=== PATIENT | female | born 1960 | race Caucasian/White ===

== ENCOUNTER → 2020-08-15 | Outpatient (CLI) | payer OTHER ==
[~2020-08-15] MED LIST: ARIMIDEX PO; BONIVA150 MG PO; CALCIUM 500 +1 EAC5 PO; CENTRUM SILVER1 EAC4 PO; LOPERAMIDE 2 MG2 M1 PO; PRILOSEC20 MG PO; STOOL SOFTENER100 MG PO; ZYRTEC10 MG PO
== END ==
LOC: CAT 10:11
PROVIDERS: ATTEND Family Medicine
DX: Z13.6 Encounter for screening for cardiovascular disorders (principal); E78.00 Pure hypercholesterolemia, unspecified

== ENCOUNTER → 2020-08-15 | Outpatient (CLI) | payer BC, OTHER | LOC: RAD 09:58 | PROVIDERS: ATTEND Family Medicine | DX: K44.9 Diaphragmatic hernia without obstruction or gangrene (principal); R13.10 Dysphagia, unspecified ==

== ENCOUNTER → 2020-09-12 | Outpatient (CLI) | payer BC, OTHER | LOC: SJCVCIMAG 08:12 | PROVIDERS: ATTEND Family Medicine | DX: R00.0 Tachycardia, unspecified (principal); R93.1 Abnormal findings on diagnostic imaging of heart and coronary circulation ==